=== PATIENT | female | born 1960 | race African-American/Black ===

== ENCOUNTER 2017-04-12 13:40 | Emergency (ER) | payer MEDICARE, OTHER ==
[2017-04-12] MEDS ORDERED: Lidocaine Viscous Sol 2% 15 ml UD Cup ONE (14:22)
[2017-04-12] MEDS ORDERED: Mag-Al Plus 1200 MG/1200 MG/120 MG/30 ML UDCUP ONE (14:22)
--- NOTE | 2017-04-12 14:57 | RAD ---
NECK SOFT TISSUES TWO VIEWS: History: Neck pain. FINDINGS: There are prominent degenerative changes of the cervical spine. Epiglottis has a normal appearance. N o soft tissue gas is visible. No radiopaque foreign bodies are apparent. Please note that glass is often radiolucent. POS: MILLICENT
== END 2017-04-12 15:38 | disposition home or self-care (01) ==
LOC: SCSER 13:40
DX: J02.9 Acute pharyngitis, unspecified (principal); F41.9 Anxiety disorder, unspecified
CPT/HCPCS: 70360

== ENCOUNTER 2017-04-19 10:37 | Emergency (ER) | payer MEDICARE | END 2017-04-19 11:06 | disposition home or self-care (01) | LOC: SCSER 10:37 | DX: S46.011A Strain of muscle(s) and tendon(s) of the rotator cuff of right shoulder, initial encounter (principal); X50.9XXA Other and unspecified overexertion or strenuous movements or postures, initial encounter | CPT/HCPCS: 99283 ==

== ENCOUNTER 2018-10-17 15:25 | Outpatient (CLI) | payer MEDICARE ==
--- NOTE | 2018-10-17 17:53 | MMO ---
Bilateral MAMMO Bilat Screen [facility]. CLINICAL HISTORY: Patient is 57 years old and is seen for screening. The patient has the following family history of breast cancer: paternal aunt; 2 cousin females and sister, malignant (generic). The patient has no personal history of cancer. VIEWS: The views performed were: bilateral craniocaudal with tomosynthesis and bilateral mediolateral oblique with tomosynthesis. FILMS COMPARED: The present examination has been compared to prior imaging studies performed at [facility] on 01/20/2016, and at [facility] on 10/30/2013, 05/04/2014 and 10/20/2014. Only the 01/20/2016 prior mammogram is available. None of the others are available. MAMMOGRAM FINDINGS: The breasts are almost entirely fat. There are no suspicious masses, suspicious calcifications, or new areas of architectural distortion. IMPRESSION: THERE IS NO MAMMOGRAPHIC EVIDENCE OF MALIGNANCY. A ROUTINE FOLLOW-UP MAMMOGRAM IN 1 YEAR IS RECOMMENDED. THE RESULTS OF THIS EXAM WERE SENT TO THE PATIENT. ACR BI-RADS Category 1 - Negative MAMMOGRAPHY NOTE: 1. A negative mammogram report should not delay a biopsy if a dominant of clinically suspicious mass is present. 2. Approximately 10% to 15% of breast cancers are not detected by mammography. 3. Adenosis and dense breasts may obscure an underlying neoplasm. Reported by: ROSALIO STEPHENSON MD Electonically Signed: [id number]
== END 2018-10-17 15:26 | disposition home or self-care (01) ==
LOC: BICMAMMO 15:25
PROVIDERS: ATTEND Nurse Practitioner Family
DX: Z12.31 Encounter for screening mammogram for malignant neoplasm of breast (principal); Z80.3 Family history of malignant neoplasm of breast
CPT/HCPCS: 77063; 77067

== ENCOUNTER 2020-11-05 | Outpatient (CLI) | payer MEDICARE | END 2020-11-05 13:05 | disposition home or self-care (01) | DX: R06.00 Dyspnea, unspecified (principal) ==